=== PATIENT | male | born 1950 | race Caucasian/White ===

== ENCOUNTER 2017-01-31 09:33 | Emergency (ER) | payer BC, MEDICARE, OTHER ==
[2017-01-31 09:42] VITALS: BP 106/71
--- NOTE | 2017-01-31 10:51 | UC ---
Jorge L Zayas Angela, scribed for Alona Mondragon MD on 01/31/17 at 1029 . Skin Complaint HPI - HPI Summary HPI Summary: This pt is a 66 y/o male presenting to [facility] c/o tick bite to right flank noticed yesterday. Pt reports that he was cleaning 2 days ago and he states he might have gotten it then. He states the tick was removed by his twin brother's son in law. Today, pt presents with localized erythematous area around tick bite. Pt denies any PMHx of lyme disease. PMHx: cerebral palsy. - History of Current Complaint Chief Complaint: UCSkin Time Seen by Provider: 01/31/17 10:23 Stated Complaint: tick bite Hx Obtained From: Patient Onset/Duration: Lasting Days Skin Exposure Onset/Duration: Days Ago Timing: Constant Location: Other - right flank Character: Redness Aggravating Factor(s): Nothing Alleviating Factor(s): Nothing Related History: Insect Bite/Sting - tick bite - Allergy/Home Medications Allergies/Adverse Reactions: Allergies Allergy/AdvReac Type Severity Reaction Status Date / Time No Known Allergies Allergy Verified 01/31/17 09:37 Review of Systems Constitutional: Negative Skin: Other - tick bite to right flank, erythematous area on location of bite Eyes: Negative ENT: Negative Respiratory: Negative Cardiovascular: Negative Gastrointestinal: Negative Genitourinary: Negative Motor: Negative Neurovascular: Negative Musculoskeletal: Negative Neurological: Other - history of cerebral palsy with right hand and right leg weakness. Psychological: Negative All Other Systems Reviewed And Are Negative: Yes PMH/Surg Hx/FS Hx/Imm Hx - Additional Past Medical History Additional PMH: PMHx: cerebral palsy Other Endocrine History: DENIES: diabetes Other Cardiovascular History: DENIES: HTN - Surgical History Surgical History: Yes Surgery Procedure, Year, and Place: appy,hernia - Family History Known Family History: Positive: Other - Both parents of old age. Brother: fatal leukemia at age 16. - Social History Occupation: Retired Lives: With Family - Alcohol Use: Rare Substance Use Type: None Smoking Status (MU): Never Smoked Tobacco Physical Exam Triage Information Reviewed: Yes Appearance: Well-Appearing Vital Signs: Initial Vital Signs Temp 98.3 F 01/31/17 09:38 Pulse 79 01/31/17 09:38 Resp 16 01/31/17 09:38 BP 106/71 01/31/17 09:38 Pulse Ox 99 01/31/17 09:38 Vital Signs Reviewed: Yes ENT: Positive: Normal ENT inspection Neck: Positive: Supple, Nontender, No Lymphadenopathy Respiratory: Positive: Lungs clear, Normal breath sounds Cardiovascular: Positive: RRR, No Murmur Neurological Exam: Other - right hand weakness with mild wasting. Skin Exam: Other - 3 cm area of erythema right flank with central induration. Mouth parts removed with splinter forceps. Course/Dx - Course Course Of Treatment: Pt is a 66 y/o male presenting to [facility] c/o tick bite to right flank noticed yesterday. Pt medications reviewed this visit. - Differential Diagnoses - Skin Complaint Differential Diagnoses: Tick Born Illness - Diagnoses Provider Diagnoses: tick bite. doxycycline prophylaxis given per guidelines. Discharge - Discharge Plan Condition: Stable Disposition: HOME Prescriptions: DOXYcycline CAP(*) [DOXYcycline 100MG CAP(*)] 100 mg PO DAILY #2 cap Patient Education Materials: Tick Bite (ED) Referrals: Chano Colon MD [Primary Care Provider] - Additional Instructions: The single dose of doxycycline has about an 80% chance of preventing Lyme disease should this tick be infected with the bacteria that causes Lyme disease. It can cause stomach upset, and you can take it with a small amount of food. The documentation as recorded by the Jorge L monroy Angela accurately reflects the service I personally performed and the decisions made by me, Alona Mondragon MD.
== END 2017-01-31 10:50 | disposition home or self-care (01) ==
LOC: UCEAST 09:33
DX: S30.861A Insect bite (nonvenomous) of abdominal wall, initial encounter (principal); W57.XXXA Bitten or stung by nonvenomous insect and other nonvenomous arthropods, initial encounter; Z86.69 Personal history of other diseases of the nervous system and sense organs
CPT/HCPCS: 99212; G0463

== ENCOUNTER 2017-08-15 12:47 | Emergency (ER) | payer OTHER ==
[2017-08-15 13:05] VITALS: BP 117/65
--- NOTE | 2017-08-15 14:07 | UC ---
Shoulder Pain HPI - HPI Summary HPI Summary: 66 year old male with tick bite. he states he thinks it was on since this AM or maybe last night after bailing hay. no fever. had about 5 episodes of tick bites per year and no lyme disease. no rash otherwise. here to make sure all the tick is out and for meds - History of Current Complaint Chief Complaint: UCSkin Stated Complaint: TICK BITE Time Seen by Provider: 08/15/17 13:03 Hx Obtained From: Patient Onset/Duration: Sudden Onset Timing: Constant Pain Intensity: 0 Pain Scale Used: 0-10 Numeric Aggravating Factor(s): Nothing Alleviating Factor(s): Nothing Associated Signs And Symptoms: Positive: Redness Related History: Similar Episode/Dx As - Allergies/Home Medications Allergies/Adverse Reactions: Allergies Allergy/AdvReac Type Severity Reaction Status Date / Time No Known Allergies Allergy Verified 02/19/17 16:53 PMH/Surg Hx/FS Hx/Imm Hx Previously Healthy: Yes Neurological History: Other - right sided CP Other Neurological History: CP - Surgical History Surgical History: Yes Surgery Procedure, Year, and Place: appy,hernia - Family History Known Family History: Positive: Other - Both parents of old age. Brother: fatal leukemia at age 16. - Social History Lives: With Family Alcohol Use: Rare Substance Use Type: None Smoking Status (MU): Never Smoked Tobacco Have You Smoked in the Last Year: No Review of Systems Skin: Other - insect bite Is Patient Immunocompromised?: No All Other Systems Reviewed And Are Negative: Yes Physical Exam Triage Information Reviewed: Yes Appearance: Well-Appearing Vital Signs: Initial Vital Signs Temp 97.8 F 08/15/17 13:02 Pulse 93 08/15/17 13:02 Resp 16 08/15/17 13:02 BP 117/65 08/15/17 13:02 Pulse Ox 100 08/15/17 13:02 Vital Signs Reviewed: Yes Eye Exam: Normal ENT Exam: Normal Neck exam: Normal Respiratory Exam: Normal Cardiovascular Exam: Normal Neurological: Positive: Alert Psychological Exam: Normal Skin: Positive: Other - right medial chest with reddened area with small peice of black insect present and removed with tweezers tolerated procedure well Shoulder Course/Dx - Course Assessment/Plan: removed all of tick it appears and given prophylactic dose doxy - Differential Dx/Diagnosis Provider Diagnoses: tick bite chest - Physician Notification/Consults Discussed Patient Care With: tick bite Discharge - Sign-Out/Discharge Documenting (check all that apply): Discharge/Admit/Transfer - Discharge Plan Condition: Good Disposition: HOME Prescriptions: Doxycycline Hyclate 100 mg PO ONCE #2 tablet Patient Education Materials: Tick Bite (ED) Referrals: Chano Colon MD [Primary Care Provider] - 3 Days - Billing Disposition and Condition Condition: GOOD Disposition: HOME
== END 2017-08-15 13:20 | disposition home or self-care (01) ==
LOC: UCEAST 12:47
DX: S20.361A Insect bite (nonvenomous) of right front wall of thorax, initial encounter (principal); W57.XXXA Bitten or stung by nonvenomous insect and other nonvenomous arthropods, initial encounter; Y93.89 Activity, other specified; Y92.9 Unspecified place or not applicable
CPT/HCPCS: 99212; G0463

== ENCOUNTER 2018-01-01 13:27 | Emergency (ER) | payer OTHER ==
[2018-01-01 13:49] VITALS: BP 105/75
--- NOTE | 2018-01-01 13:50 | UC ---
Hand/Wrist HPI - HPI Summary HPI Summary: 67 yo male presents with right wrist pain after falling 2 days ago. He tells me that he was walking on uneven ground and tripped landing on his right arm and wrist. Did not hit his head or have LOC. Did not have pain at that time. Today has some pain in his right wrist. He has a hx of CP and his right wrist is flexed and contracted at baseline - no change in this since injury. - History Of Current Complaint Chief Complaint: UCUpperExtremity Stated Complaint: R WRIST INJURY Time Seen by Provider: 01/01/18 13:49 Hx Obtained From: Patient Onset/Duration: Sudden Onset Severity Initially: Moderate Severity Currently: Moderate Pain Intensity: 5 Pain Scale Used: 0-10 Numeric - Allergies/Home Medications Allergies/Adverse Reactions: Allergies Allergy/AdvReac Type Severity Reaction Status Date / Time No Known Allergies Allergy Verified 01/01/18 13:42 Home Medications: Home Medications NK [No Home Medications Reported] 01/01/18 [History Confirmed 01/01/18] PMH/Surg Hx/FS Hx/Imm Hx - Additional Past Medical History Additional PMH: CP - Surgical History Surgical History: Yes Surgery Procedure, Year, and Place: appy,hernia - Family History Known Family History: Positive: Other - Both parents of old age. Brother: fatal leukemia at age 16. - Social History Occupation: Retired Lives: With Family Alcohol Use: Rare Substance Use Type: None Smoking Status (MU): Never Smoked Tobacco Have You Smoked in the Last Year: No Review of Systems Constitutional: Negative Skin: Negative Respiratory: Negative Cardiovascular: Negative Neurovascular: Negative Musculoskeletal: Other: - Right wrist pain Neurological: Negative Psychological: Negative All Other Systems Reviewed And Are Negative: Yes Physical Exam - Summary Physical Exam Summary: GENERAL: NAD. WDWN. No pain distress. SKIN: No rashes, sores, lesions, or open wounds. CHEST: No accessory muscle use. Breathing comfortably and in no distress. CV: Pulses intact radial and ulnar. Cap refill <2seconds MSK: Right wrist: Mild TTP over ulnar aspect. FROM passively - cannot move well actively due to CP. No edema or obvious bony deformities. No snuffbox tenderness. NEURO: Alert. Sensations intact hand and all fingers. PSYCH: Age appropriate behavior. Triage Information Reviewed: Yes Vital Signs: Initial Vital Signs Temp 99.6 F 01/01/18 13:42 Pulse 76 01/01/18 13:42 Resp 18 01/01/18 13:42 BP 105/75 01/01/18 13:42 Pulse Ox 96 01/01/18 13:42 Vital Signs Reviewed: Yes Hand/Wrist Course/Dx - Course Course Of Treatment: XR: IMPRESSION: NO FRACTURE OF THE WRIST IS NOTED. Suspect contusion vs strain. Advised to RICE and take ibuprofen prn. - Differential Dx/Diagnosis Provider Diagnoses: Right wrist pain. Fall Discharge - Sign-Out/Discharge Documenting (check all that apply): Patient Departure All imaging exams completed and their final reports reviewed: Yes - Discharge Plan Condition: Stable Disposition: HOME Patient Education Materials: Wrist Sprain (ED) Referrals: Chano Colon MD [Primary Care Provider] - Additional Instructions: If you develop a fever, shortness of breath, chest pain, new or worsening symptoms - please call your PCP or go to the ED. 1) Rest, Ice, and elevate your wrist 2) Please call your PCP if your symptoms worsen or continue - Billing Disposition and Condition Condition: STABLE Disposition: Home
--- NOTE | 2018-01-01 14:14 | RAD ---
Indication: Right wrist pain 3 views of the wrist demonstrates no fracture. No other bone or joint abnormality is identified. 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 IMPRESSION: NO FRACTURE OF THE WRIST IS NOTED.
== END 2018-01-01 14:34 | disposition home or self-care (01) ==
LOC: UCEAST 13:27
DX: M25.531 Pain in right wrist (principal); W01.0XXA Fall on same level from slipping, tripping and stumbling without subsequent striking against object, initial encounter
CPT/HCPCS: 99201; G0463

== ENCOUNTER 2018-03-12 14:22 | Emergency (ER) | payer MEDICARE, OTHER ==
[2018-03-12 15:15] VITALS: BP 120/72
--- NOTE | 2018-03-12 15:54 | UC ---
Truncal Trauma HPI - HPI Summary HPI Summary: 67-year-old male comes to clinic today with a chief complaint of right-sided rib pain. He slipped and fell on the ice yesterday and landed on his right lateral ribs. It's worse pain with taking deep breath or pushing on the area. Pain is less when he doesn't push on the area. No fevers or chills no shortness of breath. Denies any other injuries. He did take some Advil which helped with the pain briefly. - History Of Current Complaint Chief Complaint: UCUpperExtremity Stated Complaint: RIB INJURY Time Seen by Provider: 03/12/18 15:53 Pain Intensity: 6 - Allergies/Home Medications Allergies/Adverse Reactions: Allergies Allergy/AdvReac Type Severity Reaction Status Date / Time No Known Allergies Allergy Verified 03/12/18 15:15 PMH/Surg Hx/FS Hx/Imm Hx Previously Healthy: Yes - CEREBRAL PALSY - Surgical History Surgical History: Yes Surgery Procedure, Year, and Place: appy,hernia - Family History Known Family History: Positive: Other - Both parents of old age. Brother: fatal leukemia at age 16. - Social History Alcohol Use: Rare Substance Use Type: None Smoking Status (MU): Never Smoked Tobacco Have You Smoked in the Last Year: No Review of Systems All Other Systems Reviewed And Are Negative: Yes Constitutional: Positive: Negative Skin: Positive: Negative Eyes: Positive: Negative ENT: Positive: Negative Respiratory: Positive: Other - SEE HPI Cardiovascular: Positive: Chest Pain - SEE HPI Gastrointestinal: Positive: Negative Motor: Positive: Negative Neurovascular: Positive: Negative Musculoskeletal: Positive: Negative Neurological: Positive: Negative Psychological: Positive: Negative Is Patient Immunocompromised?: No Physical Exam Triage Information Reviewed: Yes Appearance: Well-Appearing, No Pain Distress, Well-Nourished Vital Signs: Initial Vital Signs Temp 98.9 F 03/12/18 15:10 Pulse 87 03/12/18 15:10 Resp 18 03/12/18 15:10 BP 120/72 03/12/18 15:10 Pulse Ox 96 03/12/18 15:10 Vital Signs Reviewed: Yes Eye Exam: Normal Eyes: Positive: Conjunctiva Clear Neck exam: Normal Neck: Positive: Supple Respiratory: Positive: Lungs clear, Normal breath sounds, No respiratory distress, Other: - Tender to palpation right lateral ribs. Cardiovascular: Positive: RRR Abdomen Description: Positive: Nontender, Soft. Negative: CVA Tenderness (R), CVA Tenderness (L) Bowel Sounds: Positive: Present Musculoskeletal Exam: Normal Musculoskeletal: Positive: Strength Intact, Other: - Chronic right arm contracture secondary to cerebral palsy Neurological Exam: Normal Neurological: Positive: Alert Psychological Exam: Normal Psychological: Positive: Age Appropriate Behavior Skin Exam: Normal Truncal Trauma Course/Dx - Course Course Of Treatment: Order Information: RIBS RT UNI W/PA CH MIN 3 VWS. Accession Number: [id number]. CPT: 01475. HISTORY: PAIN S/P TRAUMA. COMPARISONS: None. VIEWS: 8 , Frontal view of the chest with frontal and oblique views of the right. hemithorax. FINDINGS: There are minimally displaced fractures of the right sixth, seventh, eighth and. ninth ribs. There is no appreciable pneumothorax. IMPRESSION: MINIMALLY DISPLACED FRACTURES OF THE RIGHT SIXTH, SEVENTH, EIGHTH AND NINTH RIBS WITHOUT. APPRECIABLE PNEUMOTHORAX. . < Electronically signed by Fredo Hubbard MD in [facility]> 03/12/18 [id number]. I discussed the x-rays with the patient. We discharged him with an incentive spirometer. Plan will be pain control follow-up his primary care doctor reevaluate sooner if worse. - Differential Dx/Diagnosis Provider Diagnoses: RIGHT RIB FRACTURES Discharge - Sign-Out/Discharge Documenting (check all that apply): Patient Departure All imaging exams completed and their final reports reviewed: Yes - Discharge Plan Condition: Stable Disposition: HOME Prescriptions: Naproxen Sodium [Naproxen 550 mg] 550 mg PO BID #30 tablet Patient Education Materials: Rib Fracture (ED) Referrals: Chano Colon MD [Primary Care Provider] - Additional Instructions: FOLLOW UP WITH YOUR DOCTOR. GET RECHECKED FOR ANY WORSENING OF YOUR CONDITION; PAIN, SHORTNESS OF BREATH, YOU FEEL ILL OR QUESTIONS OR CONCERNS. USE THE INCENTIVE SPIROMETER EVERY 4 HOURS WHILE AWAKE OR MORE FREQUENTLY TO HELP AVOID RESPIRATORY INFECTION. - Billing Disposition and Condition Condition: STABLE Disposition: Home
== END 2018-03-12 16:38 | disposition home or self-care (01) ==
LOC: UCEAST 14:22
DX: S22.41XA Multiple fractures of ribs, right side, initial encounter for closed fracture (principal); W00.0XXA Fall on same level due to ice and snow, initial encounter; Y92.9 Unspecified place or not applicable; G80.9 Cerebral palsy, unspecified
CPT/HCPCS: 99211; G0463

== ENCOUNTER 2018-09-20 13:59 | Emergency (ER) | payer MEDICARE ==
[2018-09-20 14:12] VITALS: BP 105/75
--- NOTE | 2018-09-20 14:31 | ED ---
Skin Complaint - HPI Summary HPI Summary: 68 yr old male with the complaint of tick bite right scrotum. He removed the tick that was engorged this morning. Localized redness over the bite area. No other complaints. Redness is mild and very localized. - History of Current Complaint Chief Complaint: UCSkin Time Seen by Provider: 09/20/18 14:19 Stated Complaint: TICK BITE Pain Intensity: 0 - Allergy/Home Medications Allergies/Adverse Reactions: Allergies Allergy/AdvReac Type Severity Reaction Status Date / Time No Known Allergies Allergy Verified 09/20/18 14:12 PMH/Surg Hx/FS Hx/Imm Hx - Surgical History Surgery Procedure, Year, and Place: appy,hernia Infectious Disease History: No Infectious Disease History: Denies: Hx Clostridium Difficile, Hx Hepatitis, Hx Human Immunodeficiency Virus (HIV), Hx of Known/Suspected MRSA, Hx Shingles, Hx Tuberculosis, Hx Known/ Suspected VRE, Hx Known/Suspected VRSA, History Other Infectious Disease, Traveled Outside the [place] in Last 30 Days - Family History Known Family History: Positive: None, Other - Both parents of old age. Brother: fatal leukemia at age 16. - Social History Alcohol Use: Rare Substance Use Type: Reports: None Smoking Status (MU): Never Smoked Tobacco Have You Smoked in the Last Year: No Review of Systems Constitutional: Negative Positive: Other - tick bite scrotum All Other Systems Reviewed And Are Negative: Yes Physical Exam Triage Information Reviewed: Yes Vital Signs On Initial Exam: Initial Vitals Temp Pulse Resp BP Pulse Ox 99.1 F 84 18 105/75 96 09/20/18 14:09/20/18 14:09/20/18 14:09/20/18 14:09/20/18 14:06 Vital Signs Reviewed: Yes Appearance: Positive: Well-Appearing, No Pain Distress Skin: Positive: Other - tick bite right scrotum. Head/Face: Positive: Normal Head/Face Inspection Eyes: Positive: EOMI, ROSS ENT: Positive: Normal ENT inspection Neck: Positive: Nontender Respiratory/Lung Sounds: Positive: Clear to Auscultation, Breath Sounds Present Cardiovascular: Positive: RRR. Negative: Murmur Abdomen Description: Positive: Nontender Male Genital Exam: Positive: Other - tick bite right scrotum with mild erythema. No bulls eye. Musculoskeletal: Positive: Strength/ROM Intact Neurological: Positive: Sensory/Motor Intact, Alert, Oriented to Person Place, Time, CN Intact II-III Psychiatric: Positive: Normal Diagnostics - Vital Signs Vital Signs Temp Pulse Resp BP Pulse Ox 09/20/18 14:06 99.1 F 84 18 105/75 96 - Laboratory Lab Statement: Any lab studies that have been ordered have been reviewed, and results considered in the medical decision making process. Course/Dx - Course Course Of Treatment: tick bite scrotum. Rx doxy - Diagnoses Provider Diagnoses: Tick bite Discharge - Sign-Out/Discharge Documenting (check all that apply): Patient Departure All imaging exams completed and their final reports reviewed: No Studies - Discharge Plan Condition: Good Disposition: HOME Prescriptions: Doxycycline Monohydrate 100 mg PO BID #28 capsule Patient Education Materials: Tick Bite (ED) Referrals: Chano Colon MD [Primary Care Provider] - - Billing Disposition and Condition Condition: GOOD Disposition: Home
== END 2018-09-20 14:30 | disposition home or self-care (01) ==
LOC: UCEAST 13:59
DX: S30.863A Insect bite (nonvenomous) of scrotum and testes, initial encounter (principal); W57.XXXA Bitten or stung by nonvenomous insect and other nonvenomous arthropods, initial encounter; Y92.9 Unspecified place or not applicable
CPT/HCPCS: 99212; G0463

== ENCOUNTER 2019-02-15 11:49 | Emergency (ER) | payer MEDICARE ==
[2019-02-15 12:44] VITALS: BP 106/64
--- NOTE | 2019-02-15 12:56 | UC ---
Skin Complaint HPI - HPI Summary HPI Summary: 68-year-old male who had a tick embedded in his left buttock for less than 24 hours. - History of Current Complaint Chief Complaint: UCSkin Time Seen by Provider: 02/15/19 12:26 Stated Complaint: TICK BITE Hx Obtained From: Patient Onset/Duration: Gradual Onset Skin Exposure Onset/Duration: Hours Ago Onset Severity: Mild Current Severity: Mild Pain Intensity: 0 Location: Other - Left buttock Character: Redness Aggravating Factor(s): Nothing Alleviating Factor(s): Nothing Associated Signs & Symptoms: Positive: Negative - Allergy/Home Medications Allergies/Adverse Reactions: Allergies Allergy/AdvReac Type Severity Reaction Status Date / Time No Known Allergies Allergy Verified 02/15/19 12:44 Home Medications: Home Medications NK [No Home Medications Reported] 02/15/19 [History Confirmed 02/15/19] PMH/Surg Hx/FS Hx/Imm Hx Previously Healthy: Yes - history of cerebral palsy - Surgical History Surgical History: Yes Surgery Procedure, Year, and Place: appy,hernia - Family History Known Family History: Positive: None, Other - Both parents of old age. Brother: fatal leukemia at age 16. - Social History Occupation: Retired Alcohol Use: Rare Substance Use Type: None Smoking Status (MU): Never Smoked Tobacco Have You Smoked in the Last Year: No Review of Systems All Other Systems Reviewed And Are Negative: Yes Skin: Positive: Other - Tick was embedded in left buttock however there are no residual parts of tick left. Is Patient Immunocompromised?: No Physical Exam Triage Information Reviewed: Yes Appearance: Well-Appearing, No Pain Distress, Well-Nourished Vital Signs: Initial Vital Signs Temp 98.6 F 02/15/19 12:41 Pulse 64 02/15/19 12:41 Resp 18 02/15/19 12:41 BP 106/64 02/15/19 12:41 Pulse Ox 99 02/15/19 12:41 Vital Signs Reviewed: Yes Skin: Positive: Other - The area where the tick was embedded in the left buttock has no erythema and no residual tick parts. Course/Dx - Course Course Of Treatment: The patient is comfortable here. He opted not to have the prophylactic doxycycline. We discussed signs and symptoms of Lyme disease and information was given in the discharge instructions. Follow-up with his primary care provider if he develops any symptoms of illness. - Diagnoses Provider Diagnosis: Tick bite Discharge ED - Sign-Out/Discharge Documenting (check all that apply): Patient Departure All imaging exams completed and their final reports reviewed: No Studies - Discharge Plan Condition: Good Disposition: HOME Patient Education Materials: Tick Bite (ED) Referrals: Chano Colon MD [Primary Care Provider] - Additional Instructions: Follow-up with your primary care provider if you develop any fever, chills, body aches or rashes. - Billing Disposition and Condition Condition: GOOD Disposition: Home
== END 2019-02-15 13:09 | disposition home or self-care (01) ==
LOC: UCEAST 11:49
DX: S30.860A Insect bite (nonvenomous) of lower back and pelvis, initial encounter (principal); W57.XXXA Bitten or stung by nonvenomous insect and other nonvenomous arthropods, initial encounter; Y92.9 Unspecified place or not applicable
CPT/HCPCS: 99211; G0463

== ENCOUNTER 2019-02-22 17:38 | Emergency (ER) | payer MEDICARE ==
[2019-02-22 18:25] VITALS: BP 101/69
--- NOTE | 2019-02-22 20:01 | UC ---
Skin Complaint HPI - HPI Summary HPI Summary: REMOVED A TICK FROM HIS RIGHT MID BACK EARLIER THIS EVENING. IS NOT SURE HOW LONG IT HAD BEEN ATTACHED. GETS FREQUENT TICK BITES. - History of Current Complaint Chief Complaint: U[employer]kin Time Seen by Provider: 02/22/19 19:38 Stated Complaint: TICK Hx Obtained From: Patient Onset Severity: Mild Current Severity: Mild Pain Intensity: 0 Pain Scale Used: 0-10 Numeric Character: Redness Aggravating Factor(s): Touch Alleviating Factor(s): Nothing Associated Signs & Symptoms: Positive: Tenderness Related History: Insect Bite/Sting - Allergy/Home Medications Allergies/Adverse Reactions: Allergies Allergy/AdvReac Type Severity Reaction Status Date / Time No Known Allergies Allergy Verified 02/22/19 18:25 PMH/Surg Hx/FS Hx/Imm Hx Previously Healthy: Yes - Surgical History Surgical History: Yes Surgery Procedure, Year, and Place: appy,hernia - Family History Known Family History: Positive: None, Other - Both parents of old age. Brother: fatal leukemia at age 16. - Social History Alcohol Use: Rare Substance Use Type: None Smoking Status (MU): Never Smoked Tobacco Have You Smoked in the Last Year: No Review of Systems All Other Systems Reviewed And Are Negative: Yes Constitutional: Positive: Negative Skin: Positive: Other - TICK BITE Respiratory: Positive: Negative Cardiovascular: Positive: Negative Gastrointestinal: Positive: Negative Physical Exam Triage Information Reviewed: Yes Appearance: Well-Appearing, No Pain Distress, Well-Nourished Vital Signs: Initial Vital Signs Temp 98.9 F 02/22/19 18:21 Pulse 71 02/22/19 18:21 Resp 16 02/22/19 18:21 BP 101/69 02/22/19 18:21 Pulse Ox 98 02/22/19 18:21 Vital Signs Reviewed: Yes Eyes: Positive: Conjunctiva Clear ENT: Positive: Hearing grossly normal Neck: Positive: Supple Respiratory: Positive: No respiratory distress, No accessory muscle use Cardiovascular: Positive: Pulses Normal Abdomen Description: Positive: Soft Musculoskeletal: Positive: No Edema Neurological: Positive: Alert Psychological: Positive: Age Appropriate Behavior Skin: Positive: Other - TICK ATTACHMENT SITE RIGHT UPER BACK WITH 1CM SURROUNDING ERYTHEMA. RETAINED TICK PARTS. Course/Dx - Course Course Of Treatment: Splinter forceps used to remove retained tick parts per patient request. Pinpoint black dot retained. Advised patient no increased risk of Lyme disease with retained tick parts and no indication to dig it out. Prescription for 200 mg prophylactic doxycycline given. Advised the vigilant of signs and symptoms of Lyme disease of the next several weeks. - Diagnoses Provider Diagnosis: Tick bite Discharge ED - Sign-Out/Discharge Documenting (check all that apply): Patient Departure All imaging exams completed and their final reports reviewed: No Studies - Discharge Plan Condition: Stable Disposition: HOME Prescriptions: Doxycycline Monohydrate 2 cap PO ONCE #2 cap Patient Education Materials: Tick Bite (ED) Referrals: Chano Colon MD [Primary Care Provider] - If Needed Additional Instructions: You received a prescription for 200mg of doxycycline for prophylaxis against Lyme disease. The Infectious Disease Society of [place] (IDSA) does not generally recommend antimicrobial prophylaxis for prevention of Lyme disease after a recognized tick bite. However, in areas that are highly endemic for Lyme disease, a single dose of doxycycline may be offered to adult patients (200 mg) who are not and to children older than 8 years of age (4 mg/kg up to a maximum dose of 200 mg) when all of the following circumstances exist: CRITERIA FOR RECEIVING PROPHYLACTIC TREATMENT FOR LYME DISEASE 1) TICK ATTACHED FOR AT LEAST 36 HRS 2) TICK IS AN ADULT OR [place] DEER TICK 3) YOU LIVE IN AN AREA WHERE LYME DISEASE IS PREVALENT (i.e., [place], [place], [place], , [place] , [place], [place], [place], [place], [place], [place], [place], [place], [place]) 4) YOU HAVE NO CONTRAINDICATION TO THE MEDICATION (DOXYCYCLINE) 5) PROPHYLAXIS IS BEGUN WITHIN 72 HRS OF TICK REMOVAL YOUR CHANCES OF DEVELOPING LYME DISEASE FROM THIS TICK ARE EXTREMELY SMALL. HOWEVER, 1 TICK MEANS THERE MAY HAVE BEEN OTHER TICKS OF WHICH YOU WEREN'T AWARE. SO BE VIGILANT OF YOUR SYMPTOMS AND DON'T HESITATE TO GET SEEN AGAIN IF YOU DEVELOP UNEXPLAINED FEVER, HEADACHE, JOINT PAIN, BODY ACHES, RASH OR ANY OTHER CONCERNING SYMPTOMS. Antibiotic treatment following a tick bite is not recommended as a means to prevent anaplasmosis, babesiosis, ehrlichiosis, or [place] spotted fever. There is no evidence this practice is effective, and it may simply delay onset of disease. Instead, persons who experience a tick bite should be alert for symptoms suggestive of tickborne illness and consult a physician if fever, rash, headache or other symptoms of concern develop. - Billing Disposition and Condition Condition: STABLE Disposition: Home
== END 2019-02-22 19:50 | disposition home or self-care (01) ==
LOC: UCEAST 17:38
DX: S20.461A Insect bite (nonvenomous) of right back wall of thorax, initial encounter (principal); W57.XXXA Bitten or stung by nonvenomous insect and other nonvenomous arthropods, initial encounter; Y92.9 Unspecified place or not applicable
CPT/HCPCS: 99212; G0463